=== PATIENT | female | born 1975 | race Asian ===

== ENCOUNTER 2019-10-03 07:19 | Outpatient (RCR) | payer OTHER, SELFPAY | END 2019-10-31 12:32 | disposition home or self-care (01) | LOC: ANHWOC 07:19 | PROVIDERS: PCP Family Medicine; Visit Provider Surgery | DX: Z48.00 Encounter for change or removal of nonsurgical wound dressing (principal) | CPT/HCPCS: 99212; 99214; G0463 ==

== ENCOUNTER 2019-11-27 13:57 | Outpatient (CLI) | payer OTHER, SELFPAY ==
[2019-11-27 15:23] LABS: Blood Urea Nitrogen 11 mg/dL (7-17); Calcium 9.6 mg/dL (8.4-10.2); Carbon Dioxide 29 mmol/L (22-30); Chloride 99 mmol/L (98-107); Estimated Glomerular Filt Rate > 60; Glucose 92 mg/dL (65-105); Magnesium 1.7 mg/dL (1.6-2.3); Potassium 4.2 mmol/L (3.4-5.0); Sodium 141 mmol/L (137-145)
== END 2019-11-27 13:58 | disposition home or self-care (01) ==
PROVIDERS: PCP Family Medicine; Visit Provider Internal Medicine Cardiovascular Disease
DX: E83.42 Hypomagnesemia (principal)
CPT/HCPCS: 36415; 80048; 83735

== ENCOUNTER 2019-12-04 14:37 | Outpatient (CLI) | payer OTHER, SELFPAY ==
[2019-12-04 15:10] LABS: Magnesium 1.6 mg/dL (1.6-2.3)
== END 2019-12-04 14:38 | disposition home or self-care (01) ==
PROVIDERS: PCP Family Medicine; Visit Provider Internal Medicine Cardiovascular Disease
DX: E83.42 Hypomagnesemia (principal)
CPT/HCPCS: 36415; 83735

== ENCOUNTER 2020-04-22 17:16 | Outpatient (CLI) | payer OTHER, SELFPAY ==
[2020-04-22 17:54] LABS: Magnesium 1.6 mg/dL (1.6-2.3)
== END 2020-04-22 17:17 | disposition home or self-care (01) ==
PROVIDERS: PCP Family Medicine; Visit Provider Internal Medicine Cardiovascular Disease
DX: I42.9 Cardiomyopathy, unspecified (principal)
CPT/HCPCS: 36415; 83735

== ENCOUNTER 2020-07-01 12:58 | Outpatient (CLI) | payer OTHER, SELFPAY ==
[2020-07-01 14:24] LABS: Free T4 Free Thyroxine 1.08 ng/mL (0.78-2.19)
[2020-07-05 07:33] LABS: FSH 44.7 mIU/mL (***)
== END 2020-07-01 12:59 | disposition home or self-care (01) ==
LOC: ANHLAB 13:00
PROVIDERS: PCP Family Medicine; Visit Provider Obstetrics & Gynecology
DX: N95.1 Menopausal and female climacteric states (principal)
CPT/HCPCS: 36415; 83001; 84439; 84443

== ENCOUNTER 2020-07-27 10:55 | Outpatient (CLI) | payer OTHER, SELFPAY ==
--- NOTE | ~2020-07-27 | MM_ITS ---
EXAMINATION: MM screening [facility] BI w taurus HISTORY: Screening mammogram TECHNIQUE: Craniocaudal and mediolateral oblique 3-D tomosynthesis images were obtained and synthetic 2-D images were generated. CAD analysis was submitted and interpreted. COMPARISON: 06/22/2017, 05/25/2016 BREAST PARENCHYMAL COMPOSITION: There are scattered areas of fibroglandular density. FINDINGS: There is no evidence of suspicious mass, calcification, or architectural distortion to sugg est malignancy in either breast. There has been no suspicious interval change. IMPRESSION: 1. No mammographic evidence of malignancy. 2. Recommend routine screening mammography in one year. BI-RADS Category 1: Negative Reviewed, dictated and finalized at location A.
== END 2020-07-27 10:56 | disposition home or self-care (01) ==
LOC: ANHIMG 10:59
PROVIDERS: PCP Family Medicine; Visit Provider Obstetrics & Gynecology
DX: Z12.31 Encounter for screening mammogram for malignant neoplasm of breast (principal)
CPT/HCPCS: 77063; 77067

== ENCOUNTER 2020-12-07 10:04 | Outpatient (CLI) | payer OTHER, SELFPAY | END 2020-12-07 10:05 | disposition home or self-care (01) | LOC: ANHCOVIDVC 10:04 | PROVIDERS: PCP Family Medicine; Visit Provider Family Medicine | DX: Z23 Encounter for immunization (principal) | CPT/HCPCS: 0001A; 91300 ==

== ENCOUNTER 2020-12-28 09:59 | Outpatient (CLI) | payer OTHER, SELFPAY | END 2020-12-28 10:00 | disposition home or self-care (01) | LOC: ANHCOVIDVC 09:59 | PROVIDERS: PCP Family Medicine; Visit Provider Family Medicine | DX: Z23 Encounter for immunization (principal) | CPT/HCPCS: 0002A; 91300 ==

== ENCOUNTER 2021-01-07 09:42 | Outpatient (CLI) | payer OTHER, SELFPAY ==
[2021-01-07 10:11] LABS: Hemoglobin 13.6 g/dL (12.0-15.0); Mean Corpuscular HGB Conc 33.2 g/dl (32-36); Mean Corpuscular Volume 81.3 fl (80-100); Mean Platelet Volume 10.6 fl (7.4-10.4); Platelet Count Result 272 k/mm3 (150-375); Red Blood Count 5.04 M/mm3 (4.2-5.4); Red Cell Distribution Width 13.4 % (11.5-14.5); White Blood Count 7.5 K/mm3 (4.5-10.0)
[2021-01-07 10:21] LABS: Add Urine Microscopic? YES; Appearance Urine Cloudy (Clear); Bacteria Urine Trace /hpf; Bilirubin Urine Negative (Negative); Blood Urine Negative (Negative); Color Urine Yellow (Yellow); Glucose Urine UA Negative (Negative); Ketones Urine Negative (Negative); Leukocyte Esterase Ur Negative LEU/UL (NEGATIVE); Mucus Urine Rare /lpf; Nitrate Urine Negative (Negative); Protein Urine Negative (Negative); RBC Urine 0-2 /hpf (0-2); Specific Grav Ur 1.014 (1.001-1.035); Squamous Epithelial Cell Urine Few /hpf (Few); Urobilinogen Urine Negative mg/dL (<2.0); WBC Urine 0-3 /hpf (0-3)
[2021-01-07 10:22] LABS: Potassium 4.5 mmol/L (3.4-5.0)
[2021-01-07 10:23] LABS: Alanine Aminotransferase 139 U/L (4-35); Albumin Level 4.3 g/dL (3.5-5.1); Alkaline Phosphatase 80 U/L (38-126); Anion Gap 5 mmol/L (8-16); Aspartate Amino Transferase 97 U/L (14-36); Bilirubin,Total 0.6 mg/dL (0.2-1.3); Blood Urea Nitrogen 10 mg/dL (7-17); Calcium 9.4 mg/dL (8.4-10.2); Carbon Dioxide 31 mmol/L (22-30); Chloride 104 mmol/L (98-107); Cholesterol 195 mg/dL (0-200); Estimated Glomerular Filt Rate > 60; Glucose 115 mg/dL (65-105); HDL Direct 49 mg/dL; Magnesium 1.6 mg/dL (1.6-2.3); Sodium 140 mmol/L (137-145); Triglycerides 240 mg/dL (<150)
[2021-01-07 10:33] LABS: LDL Cholesterol Direct 95 mg/dL
== END 2021-01-07 09:43 | disposition home or self-care (01) ==
PROVIDERS: PCP Family Medicine; Visit Provider Family Medicine
DX: E83.42 Hypomagnesemia (principal); E78.5 Hyperlipidemia, unspecified
CPT/HCPCS: 36415; 80053; 80061; 81001; 83735; 84443; 85027

== ENCOUNTER 2021-01-27 09:29 | Outpatient (CLI) | payer OTHER, SELFPAY ==
[2021-01-27 10:08] LABS: Alanine Aminotransferase 144 U/L (4-35); Albumin Level 4.2 g/dL (3.5-5.1); Alkaline Phosphatase 73 U/L (38-126); Aspartate Amino Transferase 103 U/L (14-36); Bilirubin,Total 0.5 mg/dL (0.2-1.3)
[2021-01-27 10:55] LABS: Hepatitis B Surface Antigen Negative (Negative)
[2021-01-27 11:00] LABS: HAV RESULT Negative (Negative); Hepatitis B Core IgM Result Negative (Negative)
[2021-01-27 11:12] LABS: Hepatitis C Virus Antibody Negative (Negative)
== END 2021-01-27 09:30 | disposition home or self-care (01) ==
PROVIDERS: PCP Family Medicine; Referring Provider Internal Medicine Cardiovascular Disease; Visit Provider Family Medicine
DX: R94.5 Abnormal results of liver function studies (principal)
CPT/HCPCS: 36415; 80074; 80076; 82728; 86038

== ENCOUNTER 2021-02-11 11:37 | Outpatient (CLI) | payer OTHER, SELFPAY ==
--- NOTE | ~2021-02-11 | US_ITS ---
EXAMINATION: US abdomen limited EXAM DATE: 02/11/2021 12:01 INDICATION: R74.8 - Abnormal levels of other serum enzymes . TECHNIQUE: Multiple grayscale and Doppler images of the abdomen right upper quadrant were obtained (jenny y a technologist who performed the scan) and subsequently reviewed. There is no prior study for quan corley. FINDINGS: The pancreatic head and body are normal in appearance. The pancreatic tail is not visualized. There is echogenic liver parenchyma, hepatic steatosis. There are no focal liver lesions identified. Th ere is no evidence of intrahepatic biliary duct dilation. Portal venous flow was seen in the hepatop edal, normal direction and has normal Doppler waveform. No right-sided hydronephrosis. Common bile duct measures 2 mm, which is normal. The gallbladder wall is normal in thickness, with ex pected amount of distention. No sonographic evidence of pericholecystic fluid. There is no cholelit hiases. IMPRESSION: 1. Hepatic steatosis. Reviewed, dictated and finalized at location A. IMPRESSION: 1. Hepatic steatosis.
== END 2021-02-11 11:38 | disposition home or self-care (01) ==
LOC: ANHIMG 11:40
PROVIDERS: PCP Family Medicine; Visit Provider Physician Assistant
DX: R74.8 Abnormal levels of other serum enzymes (principal); K76.0 Fatty (change of) liver, not elsewhere classified
CPT/HCPCS: 76705

== ENCOUNTER 2021-03-02 17:12 | Outpatient (CLI) | payer OTHER, SELFPAY ==
[2021-03-02 18:01] LABS: Alanine Aminotransferase 149 U/L (4-35); Albumin Level 4.2 g/dL (3.5-5.1); Alkaline Phosphatase 78 U/L (38-126); Aspartate Amino Transferase 119 U/L (14-36); Bilirubin,Total 0.5 mg/dL (0.2-1.3)
== END 2021-03-02 17:13 | disposition home or self-care (01) ==
LOC: ANHLAB 17:15
PROVIDERS: PCP Family Medicine; Visit Provider Internal Medicine Cardiovascular Disease
DX: I42.9 Cardiomyopathy, unspecified (principal)
CPT/HCPCS: 36415; 80076

== ENCOUNTER 2021-08-02 09:18 | Outpatient (CLI) | payer OTHER, SELFPAY ==
--- NOTE | ~2021-08-02 | MM_ITS ---
EXAMINATION: MM screening [facility] BI w taurus HISTORY: Screening TECHNIQUE: Craniocaudal and mediolateral oblique 3-D tomosynthesis images were obtained and synthetic 2-D images were generated. CAD analysis was submitted and interpreted. COMPARISON: 05/25/2016 BREAST PARENCHYMAL COMPOSITION: The breasts are heterogeneously dense, which may obscure small masses . FINDINGS: Stable benign-appearing right breast mass. There is no evidence of suspicious mass, calcifi cation, or architectural distortion to suggest malignancy in either breast. There has been no suspici ous interval change. IMPRESSION: 1. No mammographic evidence of malignancy. 2. Recommend routine screening mammography in one year. BI-RADS Category 2: Benign finding(s). Reviewed, dictated and finalized at location A.
== END 2021-08-02 09:19 | disposition home or self-care (01) ==
LOC: ANHIMG 09:21
PROVIDERS: PCP Family Medicine; Visit Provider Obstetrics & Gynecology
DX: Z12.31 Encounter for screening mammogram for malignant neoplasm of breast (principal)
CPT/HCPCS: 77063; 77067

== ENCOUNTER 2022-01-04 11:08 | Outpatient (CLI) | payer OTHER, SELFPAY ==
[2022-01-04 11:48] LABS: Add Urine Microscopic? YES; Appearance Urine Cloudy (Clear); Bacteria Urine Trace /hpf; Bilirubin Urine Negative (Negative); Blood Urine Negative (Negative); Color Urine Yellow (Yellow); Glucose Urine UA Negative (Negative); Ketones Urine Negative (Negative); Leukocyte Esterase Ur Negative LEU/UL (NEGATIVE); Mucus Urine Rare /lpf; Nitrate Urine Negative (Negative); Protein Urine Negative (Negative); Specific Grav Ur 1.021 (1.001-1.035); Squamous Epithelial Cell Urine Few /hpf (Few); Urobilinogen Urine Negative mg/dL (<2.0); WBC Urine 0-3 /hpf (0-3)
[2022-01-04 11:52] LABS: Hematocrit 40.4 % (37.0-47.0); Hemoglobin 13.4 g/dL (12.0-15.0); Mean Corpuscular HGB Conc 33.2 g/dl (32-36); Mean Corpuscular Hemoglobin 27.7 pg (26-34); Mean Corpuscular Volume 83.5 fl (80-100); Mean Platelet Volume 10.6 fl (7.4-10.4); Platelet Count Result 287 k/mm3 (150-375); Red Blood Count 4.84 M/mm3 (4.2-5.4); Red Cell Distribution Width 13.9 % (11.5-14.5); White Blood Count 8.1 K/mm3 (4.5-10.0)
[2022-01-04 12:08] LABS: Alanine Aminotransferase 29 U/L (4-35); Albumin Level 4.3 g/dL (3.5-5.1); Alkaline Phosphatase 73 U/L (38-126); Anion Gap 5 mmol/L (8-16); Aspartate Amino Transferase 37 U/L (14-36); Bilirubin,Total 0.6 mg/dL (0.2-1.3); Blood Urea Nitrogen 11 mg/dL (7-17); Carbon Dioxide 29 mmol/L (22-30); Chloride 105 mmol/L (98-107); Cholesterol 208 mg/dL (0-200); Estimated Glomerular Filt Rate > 60; Glucose 97 mg/dL (65-110); HDL Direct 43 mg/dL; Magnesium 1.6 mg/dL (1.6-2.3); Sodium 139 mmol/L (137-145); Triglycerides 302 mg/dL (<150)
[2022-01-04 12:20] LABS: LDL Cholesterol Direct 87 mg/dL
== END 2022-01-04 11:09 | disposition home or self-care (01) ==
PROVIDERS: PCP Family Medicine; Visit Provider Family Medicine
DX: Z00.00 Encounter for general adult medical examination without abnormal findings (principal); R74.8 Abnormal levels of other serum enzymes
CPT/HCPCS: 36415; 80053; 80061; 81001; 83735; 84443; 85027

== ENCOUNTER 2022-10-06 13:58 | Outpatient (CLI) | payer OTHER, SELFPAY ==
[2022-10-06 14:17] LABS: Basophils Absolute Auto 0.1 K/mm3 (0.0-0.1); Basophils Percent Auto 0.8 % (0.2-1.2); Eosinophils Absolute Auto 0.1 K/mm3 (0-0.3); Eosinophils Percent Auto 1.7 % (0-4.4); Hemoglobin 13.7 g/dL (12.0-15.0); Immature Granulocyte Absolute 0.02 K/mm3 (0.00-0.031); Immature Granulocyte Percent A 0.2 % (0-0.5); Lymphocytes Absolute Auto 2.95 K/mm3 (0.9-3.2); Mean Corpuscular HGB Conc 32.6 g/dl (32-36); Mean Corpuscular Hemoglobin 27.3 pg (26-34); Mean Corpuscular Volume 83.8 fl (80-100); Monocytes Absolute Auto 0.9 K/mm3 (0.1-0.6); Monocytes Percent Auto 10.4 % (2.6-8.5); Neutrophils Absolute Auto 4.4 K/mm3 (1.3-6.7); Neutrophils Percent Auto 51.9 % (45.5-73.1); Platelet Count Result 265 k/mm3 (150-375); Red Blood Count 5.01 M/mm3 (4.2-5.4); Red Cell Distribution Width 13.9 % (11.5-14.5); White Blood Count 8.4 K/mm3 (4.5-10.0)
[2022-10-06 14:29] LABS: Alanine Aminotransferase 46 U/L (6-35); Albumin Level 4.5 g/dL (3.5-5.1); Alkaline Phosphatase 64 U/L (38-126); Amylase 82 U/L (30-110); Anion Gap 6 mmol/L (8-16); Aspartate Amino Transferase 38 U/L (14-36); Bilirubin,Total 0.6 mg/dL (0.2-1.3); Blood Urea Nitrogen 7 mg/dL (7-17); Calcium 9.1 mg/dL (8.4-10.2); Carbon Dioxide 30 mmol/L (22-30); Chloride 103 mmol/L (98-107); Estimated Glomerular Filt Rate > 60; Glucose 119 mg/dL (65-110); Lipase 109 U/L (23-300); Sodium 139 mmol/L (137-145)
== END 2022-10-06 13:59 | disposition home or self-care (01) ==
LOC: ANHLAB 14:00
PROVIDERS: PCP Family Medicine; Visit Provider Physician Assistant
DX: R19.7 Diarrhea, unspecified (principal); E83.42 Hypomagnesemia; R10.13 Epigastric pain; Z90.49 Acquired absence of other specified parts of digestive tract
CPT/HCPCS: 36415; 80053; 82150; 83690; 83735; 85025

== ENCOUNTER → 2022-10-11 09:12 | Outpatient (CLI) | payer OTHER, SELFPAY ==
--- NOTE | ~2022-10-11 | US_ITS ---
EXAMINATION: US abdomen limited DATE: 10/11/2022 09:34 INDICATION: Epigastric abdominal pain TECHNIQUE: Multiple grayscale and Doppler ultrasound images of the abdomen were obtained. COMPARISON: 02/11/2021 FINDINGS: Bowel gas obscures visualization of the pancreas. The visualized portions of the pancreas a re unremarkable. The liver is normal with normal echogenicity and echotexture. No surface nodularity. Normal hepatopetal flow in the main portal vein. The gallbladder is normal with no abnormal wall thi ckening, pericholecystic fluid or stones. The normal common bile duct measures 4 mm. There was no son ographic Zelaya sign. IMPRESSION: 1. No sonographic correlate for the patient's symptoms. Reviewed, dictated and finalized at location B. COVER CUTTER
== END ==
PROVIDERS: PCP Physician Assistant; Visit Provider Physician Assistant
DX: R10.13 Epigastric pain (principal)
CPT/HCPCS: 76705

== ENCOUNTER 2022-10-17 16:04 | Outpatient (CLI) | payer OTHER, SELFPAY ==
--- NOTE | ~2022-10-17 | MM_ITS ---
EXAMINATION: MM screening [facility] BI w taurus HISTORY: Screening mammogram TECHNIQUE: Craniocaudal and mediolateral oblique 3-D tomosynthesis images were obtained and synthetic 2-D images were generated. CAD analysis was submitted and interpreted. COMPARISON: 08/02/2021, 07/27/2020, 06/22/2017 bilateral screening mammogram examinations BREAST PARENCHYMAL COMPOSITION: There are scattered areas of fibroglandular density. FINDINGS: Stable mild fibroglandular asymmetry and scattered benign calcifications. There is no evide nce of suspicious mass, calcification, or architectural distortion to suggest malignancy in either br east. There has been no suspicious interval change. IMPRESSION: 1. No mammographic evidence of malignancy. 2. Recommend routine screening mammography in one year. BI-RADS Category 2: Benign finding(s). Reviewed, dictated and finalized at location A. HONE OPERATOR
== END 2022-10-17 16:05 | disposition home or self-care (01) ==
PROVIDERS: PCP Family Medicine; Visit Provider Obstetrics & Gynecology
DX: Z12.31 Encounter for screening mammogram for malignant neoplasm of breast (principal)
CPT/HCPCS: 77063; 77067

== ENCOUNTER 2023-01-12 08:53 | Outpatient (CLI) | payer OTHER, SELFPAY ==
[2023-01-12 09:17] LABS: Hematocrit 38.8 % (37.0-47.0); Hemoglobin 12.9 g/dL (12.0-15.0); Mean Corpuscular HGB Conc 33.2 g/dl (32-36); Mean Corpuscular Hemoglobin 27.3 pg (26-34); Mean Platelet Volume 9.8 fl (7.4-10.4); Platelet Count Result 273 k/mm3 (150-375); Red Blood Count 4.73 M/mm3 (4.2-5.4); Red Cell Distribution Width 13.9 % (11.5-14.5); White Blood Count 7.1 K/mm3 (4.5-10.0)
[2023-01-12 09:38] LABS: Alanine Aminotransferase 37 U/L (6-35); Albumin Level 4.3 g/dL (3.5-5.1); Alkaline Phosphatase 71 U/L (38-126); Anion Gap 6 mmol/L (8-16); Aspartate Amino Transferase 32 U/L (14-36); Bilirubin,Total 0.6 mg/dL (0.2-1.3); Blood Urea Nitrogen 12 mg/dL (7-17); Calcium 9.1 mg/dL (8.4-10.2); Carbon Dioxide 31 mmol/L (22-30); Chloride 103 mmol/L (98-107); Cholesterol 222 mg/dL (0-200); Estimated Glomerular Filt Rate > 60; Glucose 108 mg/dL (65-110); HDL Direct 51 mg/dL; Magnesium 1.6 mg/dL (1.6-2.3); Potassium 3.9 mmol/L (3.4-5.0); Sodium 140 mmol/L (137-145); Triglycerides 202 mg/dL (<150)
[2023-01-12 09:48] LABS: LDL Cholesterol Direct 114 mg/dL
[2023-01-12 10:04] LABS: Appearance Urine Clear (Clear); Bacteria Urine None Seen /hpf; Bilirubin Urine Negative (Negative); Blood Urine Negative (Negative); Color Urine Yellow (Yellow); Glucose Urine UA Negative (Negative); Ketones Urine Negative (Negative); Leukocyte Esterase Ur Trace LEU/UL (NEGATIVE); Nitrate Urine Negative (Negative); Non Pathogenic Casts 0-2; Protein Urine Negative (Negative); RBC Urine 0-2 /hpf (0-2); Squamous Epithelial Cell Urine Occasional /hpf (Few); Urobilinogen Urine 0.2 mg/dL (<2.0); WBC Urine 0-5 /hpf (0-3)
[2023-01-12 10:11] LABS: Add Urine Microscopic? YES
== END 2023-01-12 08:54 | disposition home or self-care (01) ==
LOC: ANHLAB 08:56
PROVIDERS: PCP Family Medicine; Visit Provider Family Medicine
DX: Z00.00 Encounter for general adult medical examination without abnormal findings (principal); E83.42 Hypomagnesemia; E78.5 Hyperlipidemia, unspecified
CPT/HCPCS: 36415; 80053; 80061; 81001; 83735; 84443; 85027

== ENCOUNTER 2023-11-20 13:56 | Outpatient (CLI) | payer OTHER, SELFPAY ==
--- NOTE | ~2023-11-20 | MM_ITS ---
EXAMINATION: MM screening [facility] BI w taurus HISTORY: Screening TECHNIQUE: Craniocaudal and mediolateral oblique 3-D tomosynthesis images were obtained and synthetic 2-D images were generated. CAD analysis was submitted and interpreted. COMPARISON: No prior mammogram is available for comparison at this institution. BREAST PARENCHYMAL COMPOSITION: There are scattered areas of fibroglandular density. FINDINGS: There is a focal mass in the mid lateral aspect of the right breast and focal asymmetry max trally in the left breast on CC view. There are no suspicious calcifications. IMPRESSION: 1. Focal right breast mass and left breast asymmetry. 2. Additional mammographic views and possible breast ultrasound are recommended. BI-RADS Category 0: Incomplete: Needs additional imaging evaluation. Reviewed, dictated and finalized at location A. TS AND DRAWINGS CURATOR IMPRESSION: 1. Focal right breast mass and left breast asymmetry. 2. Additional mammographic views and possible breast ultrasound are recommended . BI-RADS Category 0: Incomplete: Needs additional imaging evaluation.
== END 2023-11-20 13:57 | disposition home or self-care (01) ==
PROVIDERS: PCP Family Medicine; Visit Provider Obstetrics & Gynecology
DX: Z12.31 Encounter for screening mammogram for malignant neoplasm of breast (principal); R92.8 Other abnormal and inconclusive findings on diagnostic imaging of breast
CPT/HCPCS: 77063; 77067

== ENCOUNTER 2023-12-04 12:32 | Outpatient (CLI) | payer OTHER, SELFPAY ==
--- NOTE | ~2023-12-04 | MM_ITS ---
EXAMINATION: MM diagnostic [facility] LT w taurus HISTORY: Focal asymmetry in central left breast on screening craniocaudal view of November 20, 2023 TECHNIQUE: Additional 3-D tomosynthesis images of left breast were performed and synthetic 2-D images were generated. CAD analysis was submitted and interpreted. COMPARISON: November 20, 2023, October 17, 2022, August 02ilateral screening mammogram examin ations FINDINGS: No suspicious mass, architectural distortion or significant new or developing density is no cyndy compared to 08/2000. IMPRESSION: 1. No mammographic evidence of malignancy 2. Routine annual mammographic screening is recommended. BI-RADS Category 1: Negative Reviewed, dictated and finalized at location A. EYOR OPERATOR
== END 2023-12-04 12:33 | disposition home or self-care (01) ==
PROVIDERS: PCP Family Medicine; Visit Provider Obstetrics & Gynecology
DX: R92.8 Other abnormal and inconclusive findings on diagnostic imaging of breast (principal)
CPT/HCPCS: 77061; 77065; G0279

== ENCOUNTER 2024-01-16 11:21 | Outpatient (CLI) | payer OTHER, SELFPAY ==
[2024-01-16 11:59] LABS: Appearance Urine Clear (Clear); Bacteria Urine None Seen /hpf; Bilirubin Urine Negative (Negative); Blood Urine Negative (Negative); Color Urine Yellow (Yellow); Glucose Urine UA Negative (Negative); Ketones Urine Negative (Negative); Leukocyte Esterase Ur Trace LEU/UL (Negative); Nitrate Urine Negative (Negative); Non Pathogenic Casts 0-2; Protein Urine Negative (Negative); RBC Urine 0-2 /hpf (0-2); Specific Grav Ur 1.016 (1.001-1.035); Squamous Epithelial Cell Urine Occasional /hpf (Few); Urobilinogen Urine 0.2 mg/dL (<2.0); WBC Urine 0-5 /hpf (0-3); pH Urine 7.5 (5.0-9.0)
[2024-01-16 12:04] LABS: Hematocrit 40.4 % (37.0-47.0); Hemoglobin 13.6 g/dL (12.0-15.0); Mean Corpuscular HGB Conc 33.7 g/dl (32-36); Mean Corpuscular Hemoglobin 28.5 pg (26-34); Mean Corpuscular Volume 84.7 fl (80-100); Mean Platelet Volume 10.7 fl (7.4-10.4); Platelet Count Result 226 k/mm3 (150-375); Red Blood Count 4.77 M/mm3 (4.2-5.4); Red Cell Distribution Width 13.3 % (11.5-14.5); White Blood Count 6.7 K/mm3 (4.5-10.0)
[2024-01-16 12:05] LABS: Add Urine Microscopic? YES
[2024-01-16 12:15] LABS: Alanine Aminotransferase 18 U/L (6-35); Albumin Level 4.3 g/dL (3.5-5.1); Alkaline Phosphatase 57 U/L (38-126); Anion Gap 4 mmol/L (4-12); Aspartate Amino Transferase 26 U/L (14-36); Bilirubin,Total 0.9 mg/dL (0.2-1.3); Blood Urea Nitrogen 9 mg/dL (7-17); Calcium 9.2 mg/dL (8.4-10.2); Carbon Dioxide 31 mmol/L (22-30); Chloride 105 mmol/L (98-107); Cholesterol 224 mg/dL (0-200); Estimated Glomerular Filt Rate > 60; Glucose 92 mg/dL (65-110); HDL Direct 54 mg/dL; Potassium 3.7 mmol/L (3.4-5.0); Sodium 140 mmol/L (137-145); Triglycerides 218 mg/dL (<150)
[2024-01-16 12:26] LABS: LDL Cholesterol Direct 116 mg/dL
== END 2024-01-16 11:22 | disposition home or self-care (01) ==
PROVIDERS: PCP Family Medicine; Visit Provider Family Medicine
DX: Z00.00 Encounter for general adult medical examination without abnormal findings (principal)
CPT/HCPCS: 36415; 80053; 80061; 81001; 84443; 85027

== ENCOUNTER 2024-11-10 13:06 | Outpatient (CLI) | payer OTHER, SELFPAY ==
--- NOTE | ~2024-11-10 | MM_ITS ---
EXAMINATION: MM diagnostic mahnaz BI w taurus HISTORY: Dense breasts. TECHNIQUE: Additional 3-D tomosynthesis images of the breasts were performed and synthetic 2-D images were generated. CAD analysis was submitted and interpreted. COMPARISON: Comparison to multiple prior studies sequentially, with oldest reviewed study dated 06/22. BREAST PARENCHYMAL COMPOSITION: Not dense: There are scattered areas of fibroglandular density. FINDINGS: The breasts are stable. No new masses, calcifications or architectural distortion are ident ified in either breast to suggest malignancy. IMPRESSION: 1. Stable bilateral mammogram without evidence for malignancy. 2. Routine yearly screening mammogram and regular clinical breast examination are recommended. BI-RADS Category 1: Negative Reviewed, dictated and finalized at location B. WEBSPHERE DEVELOPER IMPRESSION: 1. Stable bilateral mammogram without evidence for malignancy. 2. Routine yearly screening mammogram and regular clinical breast examination a re recommended. BI-RADS Category 1: Negative
--- OUTSIDE RECORDS SUMMARY | 2024-11-10 13:18 | XMS_ITS | Clinical Summary ---
Author Organization [facility] Address [address] [place] [address] Care Team Providers Care Floater Operator Name Role Phone Lawrence Don MD Unavailable [phone] Source Comments [facility],non-owned Affiliates and Associated Physician Practices is amultiple site organization consisting of ambulatory clinics and hospital sitesin [place], [place], [place] and [place]. This disclosure is being madepursuant to the Care Everywhere program and may not contain all information available regarding this patient. Last updated 18.[facility] Active Problems Problem Noted Date Diagnosed Date Placenta previa without hemorrhage, antepartum 0 02/03/2014 Supervision of other high-risk 014 Overview (08/08/2015): Social History Tobacco Use Types Packs/Day Years Used Date Smoking Tobacco: Never Assessed Sex and Gender Information Value Date Recorded Sex Assigned at Not on file Gender Identity Not on file Sexual Orientation Not on file Plan of Treatment Health Maintenance Due Date Last Done Comments COLOGUARD (AGES 45-75) - COL ON CA SCREENING 1976 COLON MONITORING 1976 COLONOSCOPY - COLON CA SCREENING 1976 CT COLONOGRAPHY - COLON CA SCREENING 1975 Colorectal Cancer Screening 1975 FIT - COLON CA SCREENING 1976 FLEX SIG - COLON CA SCREENING 1976 LIPID TESTING 1975 MAMMOGRAM 1975 PAP SMEAR 1976 HIV SCREENING 1991 HEPATITIS C SCREENING 07/10/1994 DTAP/TDAP/TD VACCINES (1 - Tdap) 1995 HEPATITIS B VACCINE (1 of 3 - 19+ 3-dose series) 1995 COVID-19 VACCINE (1 - 2023-2 5 season) 2024 INFLUENZA VACCINE (#1) 2024 DEPRESSION SCREENING 10/01/2024 ZOSTER VACCINE (1 of 2) 2026 HIB VACCINE Aged Out No longer eligi ble based on patient's age to complete this topic HPV VACCINE Aged Out No longer eligi ble based on patient's age to complete this topic MENINGOCOCCAL (Group B) VACCINE Aged Out No longer eligible based on patient's age to complete this topic MENINGOCOCCAL VACCINE Aged Out No mariel moises eligible based on patient's age to complete this topic PNEUMOCOCCAL VACCINE Aged Out No long er eligible based on patient's age to complete this topic Care Teams Floater Operator Relationship Specialty Start Date End Date Lawrence Don MD Internal Medicine 02/06/14
--- OUTSIDE RECORDS SUMMARY | 2024-11-10 13:18 | XMS_ITS | Referral Summary ---
Author Organization [facility] Address [address] [place] [address] Care Team Providers Care Table Worker Name Role Phone Gustavo Mendosa MD Primary Care Provider Encounters Date Type Department Care Team Description 10/23/2024 10:15 AM QUARRY PLANT CRUSHER OPERATOR Office Visit [facility] Cardiology at [address] [place] [address] John Austin MD H/O cardiomyopathy (Primary Dx); Cardiomyopathy, unspecified type (HCC) from Last 3 Months Allergies No known active allergies Medications multivitamin capsule Take 1 capsule by mouth daily Active metoprolol XL (TOPROL-XL) 50 mg extended release tabletIndication s:Tachycardia, unspecified Take 1 tablet by mouth once daily 30 tablet 11 04/16/2024 Active Active Problems Problem Noted Date Diagnosed Date Hypertriglyceridemia 01/30/2022 Dizziness 01/30/2022 Abnormal LFTs 07/04/2021 H/O cardiomyopathy 06/22/2020 Preoperative cardiovascular examination 09/03/20 19 Cardiomyopathy 07/03/2019 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 Supervision of high-risk , unspecified trimester 11/21/2018 Antepartum multigravida of advanced maternal age 0211/21/2018 Previous section complicating 11/21/2018 Overview (12/23/2018): For repeat c/s with Beer at 39 weeks Diabetes mellitus complicating , antepa rtum 11/21/2018 Overview (02/11/2019): Current therapy as of 02/11/19 NPH 30 QHS Metformin 500mg QAM /1700mg QHS Resolved Problems Problem Noted Date Diagnosed Date Resolved Date Pyelectasis of fetus on ultrasound 11/21/2018 01/20/2019 Overview (12/23/2018): 12/23: R renal pelvis 5.5 mm For assessment at 32-33 weeks. Recurrent loss 01/01/2018 Anovulation 07/03/2017 11/21/2018 History of obstetric problem 11/30/2016 11/21/2018 Diminished ovarian reserve d ue to advanced maternal age 0805/11/2016 11/21/2018 Placenta previa without hemo rrhage, antepartum 02/03/2014 11/21/2018 Social History Tobacco Use Types Packs/Day Years Used Date Smoking Tobacco: Never Smokeless Tobacco: Never Tobacco Cessation:Counseling Given: Not Answered Alcohol Use Standard Drinks/Week Comments No 0 (1 standard drink = 0.6 oz pur e alcohol) AUDIT-C Answer Date Recorded Q1: How often do you have a drink containing alc ohol? Never 10/19/2022 Average Number of Drinks Not on file 023 Frequency of Binge Drinking Not on file 10/01 Personal Safety Answer Date Recorded Getting School Help Needed Denies 09/25 Comments No Sex and Gender Information Value Date Recorded Sex Assigned at Not on file Legal Sex Female 4:05 AM QUARRY PLANT CRUSHER OPERATOR Gender Identity Female 03/09/2020 7:23 PM CDT Sexual Orientation Not on file Last Filed Vital Signs Vital Sign Reading Time Taken Comments Blood Pressure 128/78 10/23/2024 10:02 AM QUARRY PLANT CRUSHER OPERATOR Pulse 87 10/23/2024 10:02 AM QUARRY PLANT CRUSHER OPERATOR Temperature 36 C (96.8 F) 10/19/2022 2:10 PM QUARRY PLANT CRUSHER OPERATOR Respiratory Rate 15 10/19/2022 2:30 PM QUARRY PLANT CRUSHER OPERATOR Oxygen Saturation 97% 10/23/2024 10:02 AM QUARRY PLANT CRUSHER OPERATOR Inhaled Oxygen Concentration - - Weight 79.8 kg (176 lb) 10/23/2024 10:02 AM QUARRY PLANT CRUSHER OPERATOR Height 167.6 cm (5' 6 ) 10/23/2024 10:02 AM QUARRY PLANT CRUSHER OPERATOR Body Mass Index 28.41 10/23/2024 10:02 AM QUARRY PLANT CRUSHER OPERATOR Plan of Treatment Not on file Procedures Procedure Name Priority Date/Time Associated Diagnosis Comments LIPID PANEL Routine 01/16/2024 11:37 AM CDT COLONOSCOPY 10/19/2022 1:03 PM QUARRY PLANT CRUSHER OPERATOR HEMOGLOBIN A1C Routine 08/13/2018 SERUM HEPATITIS C AB Routine 06/16/2016 12:03 PM CDT from Last 3 Months or Most Recently Relevant to Health Maintenance Results * (ABNORMAL) Lipid panel (01/16/2024 11:37 AM CDT) SCRIBED Cholesterol, Total 224(A) 0 - 200 EXTERNAL LAB SCRIBED HDL 54 40 - 100 EXTERNAL LAB SCRIBED LDL 116(A) 0 - 100 EXTERNAL LAB SCRIBED Triglycerides 218(A) 0 - 150 EXTERNAL LAB Blood 01/16/2024 11:3 7 AM CDT us Historical Provider LAB BLOOD ORDERABLES Felicitas joseph Result EXTERNAL LAB * COLONOSCOPY (10/19/2022 1:03 PM QUARRY PLANT CRUSHER OPERATOR) Anatomical Region Laterality Modality Other Narrative Procedure Note Early, Lay Ventura MD - 10/19/2022 1:03 PM [facility] Patient Name: Elisha Guzmán Procedure Date: 10/19/2022 1:03 PM Date of : 1975 Admit Type: Outpatient Age: 47 Gender: Female Attending MD: Lay Salazar M.D. Room: [facility] ENDOSCOPY ROOM 9 Note Status: Finalized Procedure: Colonoscopy Indications: Screening for colorectal malignant neoplasm, Incidental - Positive Cologuard test Referring MD: Robert Hays M.D., Gustavo Mendosa M.D. Providers: Lay Salazar M.D. Medicines: Monitored Anesthesia Care Complications: No immediate complications. Estimated Blood Loss: Estimated blood loss: none. Procedure: Pre-Anesthesia Assessment: - Immediately prior to administration ofmedications, the patient was re-assessed for adequacy to receive sedatives. - The risks and benefits of the procedure and the sedation options and risks were discussed with the patient. All questions were answered and informed consent was obtained. The benefits, risks and alternatives of theprocedure and sedation were discussed and informed consentwas obtained. All questions were answered. Please referto the signed informed consent document in the medical record. The scope was passed under direct vision.The [id number] endoscope was introduced through the anus and advanced to the cecum, identified by appendiceal orifice and ileocecal valve. The colonoscopy was performed without difficulty. The patient tolerated the procedure well. The qualityof the bowel preparation was evaluated using the BBPS (Aspen Bowel Preparation Scale) with scores of:Right Colon = 3, Transverse Colon = 3 and Left Colon = 3 (entire mucosa seen well with no residual staining, small fragments of stool or opaque liquid). Thetotal BBPS score equals 9. The bowel preparation used was polyethylene glycol (PEG) via split doseinstruction. The quality of the bowel preparation wasexcellent. Findings: A 4 mm polyp was found in the sigmoid colon. The polyp was sessile.The polyp was removed with a cold snare. Resection and retrieval were complete. Small non-bleeding internal hemorrhoids were found on retroflexion. The exam was otherwise without abnormality. Impression: - One 4 mm polyp in the sigmoid colon, removed witha cold snare. Resected and retrieved. - Small non-bleeding internal hemorrhoids werefound on retroflexion. - The examination was otherwise normal. Recommendation: - Repeat colonoscopy in 7-10 years for surveillance based on pathology results. Attending Participation: I personally performed the entire procedure. Electronically signed by Lay Salazar MD Lay Salazar M.D. 10/19/2022 2:34:21 PM . Number of Addenda: 0 Note Initiated On: 10/19/2022 1:03 PM Recognized by the [employer] for promoting quality in endoscopy Lay Salazar MD ENDOSCOPY PROCEDURES Final Res ult * Hemoglobin A1c (08/13/2018) SCRIBED Hemoglobin A1c 5.7 (high) Blood specimen (specimen) Glen Sofia MD LAB BLOOD ORDERABLES Final Re sult * Serum Hepatitis C ab (06/16/2016 12:03 PM CDT) HCV ab Negative NEG CDR HISTOR ICAL RESULTS Serum 06/16/2016 12:0 3 PM CDT Narrative CDR HISTORICAL RESULTS - 06/17/2016 4:57 AM CDT Interpretive Data Positive results should be confirmed by a molecular method. If positive, a second separately collected sample should be submitted for Hepatitis C Virus (HCV) RNA Detection and Quantitation by Real-Time Reverse Painter Drum-PCR (RT-PCR). Current interpretive data was last revised on 2016. Kala Silver MD LAB BLOOD ORDERABLES Final Re sult CDR HISTORICAL RESULTS from Last 3 Months or Most Recently Relevant to Health Maintenance Insurance [facility]/PPO Address: [facility] [id number] [place] [address] [facility] H[facility]/PPO Address: [address] [address] [place] [address] [facility] O [facility] HMO/PPO Address: [facility] [address] [place] [address] [facility] O [facility] H[facility]/PPO Address: [facility] [id number] [place] [address] [facility] HMO/PPO Address: [facility] [address] [place] [address] Advance Directives For more information, please contact: [phone] * Full Code (Latest Code Status on File) Date Activated Date Inactivated Comments 10/19/2022 1:30 PM 10/19/2022 6:57 PM Care Teams Table Worker Relationship Specialty Start Date End Date Gustavo Mendosa MD [address] [facility] [address] [place] [address] PCP - General Family Medicine 05/09/19
--- OUTSIDE RECORDS SUMMARY | 2024-11-10 13:18 | XMS_ITS | Referral Summary ---
Author Organization [facility] Address [address] [place] [address] Care Team Providers Care Lithograph Press Operator Tinware Name Role Phone Lawrence Don MD Unavailable [phone] Source Comments [facility],non-owned Affiliates and Associated Physician Practices is amultiple site organization consisting of ambulatory clinics and hospital sitesin [place], [place], [place] and [place]. This disclosure is being madepursuant to the Care Everywhere program and may not contain all information available regarding this patient. Last updated 18.[facility] Active Problems Problem Noted Date Diagnosed Date Placenta previa without hemorrhage, antepartum 0 02/03/2014 Supervision of other high-risk 014 Overview (08/08/2015): Social History Tobacco Use Types Packs/Day Years Used Date Smoking Tobacco: Never Assessed Sex and Gender Information Value Date Recorded Sex Assigned at Not on file Gender Identity Not on file Sexual Orientation Not on file Plan of Treatment Not on file Care Teams Lithograph Press Operator Tinware Relationship Specialty Start Date End Date Lawrence Don MD Internal Medicine 02/06/14
--- OUTSIDE RECORDS SUMMARY | 2024-11-10 13:18 | XMS_ITS | Clinical Summary ---
Author Organization [facility] Address [address] [place] [address] Care Team Providers Care Journeyman Plumber Name Role Phone Gustavo Mendosa MD Primary Care Provider Allergies No known active allergies Medications multivitamin [...] previa without hemo rrhage, antepartum 02/03/2014 11/21/2018 Encounters Date Type Department Care Team Description 10/23/2024 10:15 AM LEPIDOPTERIST Office Visit [facility] Medical Group Cardiology at [address] [place] [address] John Austin MD H/O cardiomyopathy (Primary Dx); Cardiomyopathy, unspecified type (HCC) from Last 3 Months Surgical History Surgery Date Site/Laterality Comments SECTION 03/31/2014 - 04/30/2014 OTHER SURGICAL HISTORY 05/12/2013 Laparoscopic lysis of adhesions, HSC polypectomy, left tubal occlusion EXPLORATORY LAPAROTOMY 10/01/2004 e-lap RSO in 2004 EXPLORATORY LAPAROTOMY 10/01/2006 ex lap and left ovarian cystectomy in 2006 SMALL BOWEL RESECTION TUBAL LIGATION Medical History Medical History Date Comments Endometriosis 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 History of gestational diabetes Recurrent loss Diminished ovarian reserve due to advanced mater nal age Cardiomyopathy (HCC) Family History Medical History Relation Name Comments Car Accident Father Diabetes Other Relation Name Status Comments Father Mother Alive Other Social History Tobacco Use Types Packs/Day Years [...] on file Legal Sex Female 4:05 AM LEPIDOPTERIST Gender Identity Female 03/09/2020 7:23 PM CDT Sexual Orientation Not on file Obstetrics History Para Term AB IAB SAB Ectopic Multiple Livin g Live Births 4 1 1 0 2 2 1 1 Date Outcome GA Total Labor Labor/2nd/3rd Weight Sex Type Anes PTL Ana A1 A5 Name Clin 014 Term 37w 0d 2.722 kg (6 lb) CS-LT ranv Living Complications:Placenta Previ a 016 SAB 017 SAB Comments Conceived by donor egg Last Filed Vital Signs Vital Sign Reading Time Taken Comments Blood Pressure 128/78 10/23/2024 10:02 AM LEPIDOPTERIST Pulse 87 10/23/2024 10:02 AM LEPIDOPTERIST Temperature 36 C (96.8 F) 10/19/2022 2:10 PM LEPIDOPTERIST Respiratory Rate 15 10/19/2022 2:30 PM LEPIDOPTERIST Oxygen Saturation 97% 10/23/2024 10:02 AM LEPIDOPTERIST Inhaled Oxygen Concentration - - Weight 79.8 kg (176 lb) 10/23/2024 10:02 AM LEPIDOPTERIST Height 167.6 cm (5' 6 ) 10/23/2024 10:02 AM LEPIDOPTERIST Body Mass Index 28.41 10/23/2024 10:02 AM LEPIDOPTERIST Plan of Treatment Health Maintenance Due Date Last Done Comments Albumin Creatinine Ratio, Urine 1976 Breast Cancer Screening-Mammogram 1976 Cervical Cancer Screening 1976 Depression Screening 1976 eGFR 1976 Dilated Eye Exam 1976 Foot Exam 1976 Pneumococcal vaccine <65 (1 of 2 - PCV) 1982 Hepatitis B Screening 1994 Regular Well Visit/Exam 18-64 1994 Hemoglobin A1C 02/10/2019 08/13/2018 Influenza Vaccine (#1) 2024 Lipid Panel 01/15/2025 01/16/2024, 01/29, 01/30/2022, Additional history exists DTaP/Tdap/Td Vaccine (2 - Td or Tdap) 01/14/2029 01/14/2019 Colon Cancer Screening-Colonoscopy 10/19/20322022 Hepatitis C Screening Completed 06/16/2016, 013 Procedures Procedure Name Priority Date/Time Associated Diagnosis Comments LIPID PANEL Routine 01/16/2024 11:37 AM CDT COLONOSCOPY 10/19/2022 1:03 PM LEPIDOPTERIST HEMOGLOBIN A1C Routine 08/13/2018 SERUM HEPATITIS C [...] us Historical Provider LAB BLOOD ORDERABLES Felicitas l Result EXTERNAL LAB * COLONOSCOPY (10/19/2022 1:03 PM LEPIDOPTERIST) Anatomical Region Laterality Modality Other Narrative Procedure Note Early, Lay Ventura MD - 10/19/2022 1:03 PM [facility] Patient Name: Elisha Guzmán Procedure Date: 10/19/2022 1:03 PM Date of : 1975 Admit Type: Outpatient Age: 47 Gender: Female Attending MD: Lay Salazar M.D. Room: [facility] 9 Note Status: Finalized Procedure: [...] The scope was passed under direct vision.The [id number] endoscope was introduced through the anus and advanced to the cecum, identified by appendiceal orifice and ileocecal valve. The colonoscopy was performed without difficulty. The patient tolerated the procedure well. The qualityof the bowel preparation was evaluated using the BBPS ([place] Bowel Preparation Scale) with scores of:Right Colon [...] On: 10/19/2022 1:03 PM Recognized by the [place] [employer] Gastrointestinal Endoscopy for promoting quality [...] RNA Detection and Quantitation by Real-Time Reverse Igniter Capper-PCR (RT-PCR). Current interpretive data was last revised on 2016. us Kala Silver MD LAB BLOOD ORDERABLES Final Re sult CDR HISTORICAL RESULTS from Last 3 Months or Most Recently Relevant to Health Maintenance Insurance [facility] Advance Directives For more information, please contact: [phone] * Full Code (Latest Code Status on File) Date Activated Date Inactivated Comments 10/19/2022 1:30 PM 10/19/2022 6:57 PM Care Teams Journeyman Plumber Relationship Specialty Start Date End Date Gustavo Mendosa MD [address] [facility] [address] [place] [address] PCP - General Family Medicine 05/09/19
--- OUTSIDE RECORDS SUMMARY | 2024-11-10 13:19 | XMS_ITS | Patient Health Summary ---
Author Organization [facility] Address [address] [place] [address] Care Team Providers Care Department Assistant Name Role Phone Lawrence Don MD Unavailable [phone] Note from [facility],non-owned Affiliates and Associated Physician Practices is amultiple site organization consisting of ambulatory clinics and hospital sitesin [place], [place], [place] and [place]. This disclosure is being madepursuant to the Care Everywhere program and may not contain all information available regarding this patient. Last updated 18.[facility] Active Problems Problem Noted Date Diagnosed Date Placenta previa without hemorrhage, antepartum 0 02/03/2014 Supervision of other high-risk 014 Social History Tobacco Use Types Packs/Day Years Used Date Smoking Tobacco: Never Assessed Sex and Gender Information Value Date Recorded Sex Assigned at Not on file Gender Identity Not on file Sexual Orientation Not on file Procedures * SONOGRAM - COMPLETE(Performed 02/06/2014) Performed for Placenta Previa Without Hemorrhage, Antepartum (Hcc), Supervision of other high-risk (HCC) Results * SONOGRAM - COMPLETE (02/06/2014 4:11 PM CDT) Anatomical Region Laterality Modality Other 02/06/2014 4:11 PM CDT Narrative 02/06/2014 4:03 PM CDT [facility] PHONE: FAX: Pat. Name: ELISHA SANCHEZ. No: [id number] Study Date: 02/06/2014 4:11pm , Age: 11 1975, 38 Pregnancies: 1 LMP: 07/28/2013 GA by LMP: 27w4d GA by US: 25w4d GA Selected: 25w3d (From Known E) ARIE: 05/19/2014 Referring MD: JOHN DANIEL MD Hand Riveter: Dixie Trejo RDMS Hist/Ind: Advanced Maternal Age Complete Previa MEASUREMENTS & AGE GROWTH EVALUATION Measurement GA Range Srce %for GA Ratios ----- ---- ------- BPD 6.3 cm 25w4d (15c3z-19o8b) Hadl BPD 52% FL/BPD 0.73 (0.71 - 0.87) HC 22.2 cm 24w2d (86q9d-98b7p) Hadl HC 25% FL/AC 0.22 (0.20 - 0.24) AC 20.8 cm 25w3d (08f8v-94i2m) Hadl AC 49% HC/AC 1.07 (1.01 - 1.20) FL 4.6 cm 25w3d (15b7u-34v4p) Hadl FL 49% CI 0.82 (0.70 - 0.86) HL 4.7 cm 27w4d (49l9g-31s8u) Davey MCKINNON 86% GA for sonogram 25w4d (55l4y-67s7n) Weight Estimate: based on (HL,BPD,HC,AC,FL) Avg Weight: 791 gm (675-906) Hadlock : 1lbs, 11oz Normal: 791 gm (524-1240) Julianna Wt% 50% for 25w3d Heart Rate: 129 bpm CLINICAL SUMMARY Study Number: 1 A viramontes fetus is identified in cephalic presentation. The amniotic fluid volume is within normal limits. IMPRESSION: Viramontes gestation, 25w3d Biometry is consistent with the IVF-based ARIE of 05/19/14 No structural abnormalities were detected on detailed anatomic survey There is a complete posterior previa There is a marginal placental cord insertion NOTE: The patient was advised that ultrasound does not allow detection of all structural or chromosomal abnormalities. RECOMMEND: Repeat growth assessment in 4 weeks. Thank you for allowing us the opportunity to care for your patient. Jayna Gracia MD <Electronic Signature> 02/06/2014 04:02pm Jayna Gracia MD [facility] ORDERABLES Care Teams Department Assistant Relationship Specialty Start Date End Date Lawrence Don MD Internal Medicine 02/06/14
== END 2024-11-10 13:07 | disposition home or self-care (01) ==
LOC: ANHIMG 13:06
PROVIDERS: PCP Family Medicine; Visit Provider Obstetrics & Gynecology
DX: R92.30 Dense breasts, unspecified (principal); Z98.82 Breast implant status
CPT/HCPCS: 77062; 77066; G0279

== ENCOUNTER 2025-01-20 14:04 | Outpatient (CLI) | payer OTHER, SELFPAY ==
[2025-01-20 14:45] LABS: Hematocrit 41.8 % (37.0-47.0); Hemoglobin 13.3 g/dL (12.0-15.0); Mean Corpuscular HGB Conc 31.8 g/dl (32-36); Mean Corpuscular Hemoglobin 26.3 pg (26-34); Mean Corpuscular Volume 82.8 fl (80-100); Mean Platelet Volume 10.5 fl (7.4-10.4); Platelet Count Result 247 k/mm3 (150-375); Red Blood Count 5.05 M/mm3 (4.2-5.4); Red Cell Distribution Width 13.5 % (11.5-14.5); White Blood Count 7.3 K/mm3 (4.5-10.0)
[2025-01-20 14:48] LABS: Add Urine Microscopic? YES; Appearance Urine Clear (Clear); Bacteria Urine None Seen /hpf; Bilirubin Urine Negative (Negative); Blood Urine Negative (Negative); Color Urine Yellow (Yellow); Glucose Urine UA Negative (Negative); Ketones Urine Negative (Negative); Leukocyte Esterase Ur Negative LEU/UL (Negative); Nitrate Urine Negative (Negative); Non Pathogenic Casts 0-2; Protein Urine Trace mg/dL (Negative); RBC Urine 0-2 /hpf (0-2); Specific Grav Ur 1.019 (1.001-1.035); Squamous Epithelial Cell Urine None Seen /hpf (Few); Urobilinogen Urine 0.2 mg/dL (<2.0); WBC Urine 0-5 /hpf (0-3)
[2025-01-20 14:54] LABS: Alanine Aminotransferase 29 U/L (6-35); Albumin Level 4.4 g/dL (3.5-5.1); Alkaline Phosphatase 79 U/L (38-126); Anion Gap 8 mmol/L (4-12); Aspartate Amino Transferase 30 U/L (14-36); Bilirubin,Total 0.6 mg/dL (0.2-1.3); Blood Urea Nitrogen 10 mg/dL (7-17); Calcium 9.2 mg/dL (8.4-10.2); Carbon Dioxide 29 mmol/L (22-30); Chloride 103 mmol/L (98-107); Cholesterol 238 mg/dL (0-200); Estimated Glomerular Filt Rate > 60; Glucose 97 mg/dL (65-110); HDL Direct 56 mg/dL; Sodium 140 mmol/L (137-145); Triglycerides 305 mg/dL (<150)
[2025-01-20 15:05] LABS: LDL Cholesterol Direct 94 mg/dL
--- OUTSIDE RECORDS SUMMARY | 2025-01-20 16:09 | XMS_ITS | Clinical Summary ---
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 Hypomagnesemia 07/03/2019 [...] Department Care Team Description 10/23/2024 10:15 AM BATTERY TESTER FIELD Office Visit [facility] Medical Group Cardiology at [address] [place] [address] John Austin MD H/O cardiomyopathy [...] on file Legal Sex Female 4:05 AM BATTERY TESTER FIELD Gender Identity Female 03/09/2020 7:23 PM CDT [...] Comments Blood Pressure 128/78 10/23/2024 10:02 AM BATTERY TESTER FIELD Pulse 87 10/23/2024 10:02 AM BATTERY TESTER FIELD Temperature 36 C (96.8 F) 10/19/2022 2:10 PM BATTERY TESTER FIELD Respiratory Rate 15 10/19/2022 2:30 PM BATTERY TESTER FIELD Oxygen Saturation 97% 10/23/2024 10:02 AM BATTERY TESTER FIELD Inhaled Oxygen Concentration - - Weight 79.8 kg (176 lb) 10/23/2024 10:02 AM BATTERY TESTER FIELD Height 167.6 cm (5' 6 ) 10/23/2024 10:02 AM BATTERY TESTER FIELD Body Mass Index 28.41 10/23/2024 10:02 AM BATTERY TESTER FIELD Plan of Treatment Health Maintenance Due Date Last Done Comments Albumin Creatinine Ratio, Urine 1976 Breast Cancer Screening-Mammogram 1976 Cervical Cancer Screening 1976 Depression Screening 1976 eGFR 1976 Dilated Eye Exam 1976 Foot Exam 1976 Hepatitis B Screening 1994 Regular Well Visit/Exam 18-64 1994 Pneumococcal vaccine <65 (1 of 2 - PCV) 1995 Hemoglobin A1C 02/10/2019 08/13/2018 Lipid Panel 01/15/2025 01/16/2024, 01/29, 01/30/2022, Additional history exists Influenza Vaccine (Season Ended) 2025 DTaP/Tdap/Td Vaccine (2 - Td or Tdap) 01/14/2029 01/14/2019 Colon Cancer Screening-Colonoscopy 10/19/20322022 Hepatitis C Screening Completed 06/16/2016, 013 Procedures Procedure Name Priority Date/Time Associated Diagnosis Comments LIPID PANEL Routine 01/16/2024 11:37 AM CDT COLONOSCOPY 10/19/2022 1:03 PM BATTERY TESTER FIELD HEMOGLOBIN A1C Routine 08/13/2018 SERUM HEPATITIS C [...] EXTERNAL LAB * COLONOSCOPY (10/19/2022 1:03 PM BATTERY TESTER FIELD) Anatomical Region Laterality Modality Other Narrative Procedure Note Early, Lay Ventura MD - 10/19/2022 1:03 PM CST [facility] Patient Name: Elisha Guzmán Procedure Date: 10/19/2022 1:03 PM Date of : 1975 Admit Type: Outpatient Age: 47 Gender: Female Attending MD: Lay Salazar M.D. Room: [facility] END[facility] 9 Note Status: Finalized Procedure: Colonoscopy Indications: Screening for colorectal malignant neoplasm, Incidental - Positive Cologuard test Referring MD: Robert Hasy M.D., Gustavo Mendosa M.D. Providers: Lay Salazar [...] The scope was passed under direct vision.The [id number] endoscope was introduced through the anus and advanced to the cecum, identified by appendiceal orifice and ileocecal valve. The colonoscopy was performed without difficulty. The patient tolerated the procedure well. The qualityof the bowel preparation was evaluated using the BBPS ([place] Bowel Preparation Scale) with scores of:Right Colon [...] On: 10/19/2022 1:03 PM Recognized by the [place] [employer] Gastrointestinal Endoscopy for promoting quality [...] RNA Detection and Quantitation by Real-Time Reverse Hvac Project Manager-PCR (RT-PCR). Current interpretive data was last revised on 2016. us Kala Silver MD LAB BLOOD ORDERABLES Final Re sult CDR HISTORICAL RESULTS from Last 3 Months or Most Recently Relevant to Health Maintenance Insurance [facility] H[facility]/PPO Address: [facility] [id number] [place] [address] [facility] H[facility]/PPO Address: [address] [address] [place] [address] [facility] H[facility]/PPO Address: [id number] [place] [address] [facility] H[facility]/PPO Address: [id number] [place] [address] Advance Directives For more information, please contact: [phone] * Full Code (Latest Code Status on File) Date Activated Date Inactivated Comments 10/19/2022 1:30 PM 10/19/2022 6:57 PM Care Teams Stained Glass Artist Relationship Specialty Start Date End Date Gustavo eMndosa MD [address] [facility] [address] [place] [address] PCP - General Family Medicine 05/09/19
--- OUTSIDE RECORDS SUMMARY | 2025-01-20 16:09 | XMS_ITS | Clinical Summary ---
Author Organization [facility] Address [address] [place] [address] Care Team Providers Care Strings Teacher Name Role Phone Lawrence Don MD Unavailable [phone] Source Comments [facility],non-owned Affiliates and Associated Physician Practices is amultiple site organization consisting of ambulatory clinics and hospital sitesin [place], [place], [place] and [place]. This disclosure is being madepursuant to the Care Everywhere program and may not contain all information available regarding this patient. Last updated 18.[facility] Active Problems Problem Noted Date Diagnosed Date Placenta previa without hemorrhage, antepartum 0 02/03/2014 Supervision of other high-risk 014 Overview (08/08/2015): Social History Tobacco Use Types Packs/Day Years Used Date Smoking Tobacco: Never Assessed Comments No Sex and Gender Information Value Date Recorded Sex Assigned at Not on file Legal Sex Female 1:33 PM CDT Gender Identity Not on file Sexual Orientation [...] SCREENING 1975 LIPID TESTING 1975 MAMMOGRAM 1976 HIV SCREENING 1991 HEPATITIS C SCREENING 07/10/1994 DTAP/TDAP/TD VACCINES (1 - Tdap) 1995 HEPATITIS B VACCINE (1 of 3 - 19+ 3-dose series) 1995 COVID-19 VACCINE (1 - 2023-2 5 season) 2024 DEPRESSION SCREENING 10/01/2024 INFLUENZA VACCINE (Season Ended) 2025 ZOSTER VACCINE (1 of 2) 2026 HIB VACCINE Aged Out No longer eligi ble based on patient's age to complete this topic HPV VACCINE Aged Out No longer eligi ble based on patient's age to complete this topic MENINGOCOCCAL (Group B) VACC INE SHARED DECISION-MAKING Aged Out No longer eligibl e based on patient's age to complete this topic MENINGOCOCCAL GROUPS A/C/Y/W VACCINE Aged Out No longer eligible b ased on patient's age to complete this topic PNEUMOCOCCAL VACCINE Aged Out No long er eligible based on patient's age to complete [place] [address] [facility] Address: [facility] [address] [place] [id number] Care Teams Strings Teacher Relationship Specialty Start Date End Date Lawrence Don MD Internal Medicine 02/06/14
--- OUTSIDE RECORDS SUMMARY | 2025-01-20 16:09 | XMS_ITS | Referral Summary ---
Author Organization [facility] Address [address] [place] [address] Care Team Providers Care Mosaicist Name Role Phone Gustavo Mendosa MD Primary Care Provider Encounters Date Type Department Care Team Description 10/23/2024 10:15 AM GOVERNMENT TEACHER Office Visit [facility] Medical Group Cardiology at [address] [place] [address] John Austin MD H/O cardiomyopathy [...] on file Legal Sex Female 4:05 AM GOVERNMENT TEACHER Gender Identity Female 03/09/2020 7:23 PM CDT Sexual Orientation Not on file Last Filed Vital Signs Vital Sign Reading Time Taken Comments Blood Pressure 128/78 10/23/2024 10:02 AM GOVERNMENT TEACHER Pulse 87 10/23/2024 10:02 AM GOVERNMENT TEACHER Temperature 36 C (96.8 F) 10/19/2022 2:10 PM GOVERNMENT TEACHER Respiratory Rate 15 10/19/2022 2:30 PM GOVERNMENT TEACHER Oxygen Saturation 97% 10/23/2024 10:02 AM GOVERNMENT TEACHER Inhaled Oxygen Concentration - - Weight 79.8 kg (176 lb) 10/23/2024 10:02 AM GOVERNMENT TEACHER Height 167.6 cm (5' 6 ) 10/23/2024 10:02 AM GOVERNMENT TEACHER Body Mass Index 28.41 10/23/2024 10:02 AM GOVERNMENT TEACHER Plan of Treatment Not on file Procedures Procedure Name Priority Date/Time Associated Diagnosis Comments LIPID PANEL Routine 01/16/2024 11:37 AM CDT COLONOSCOPY 10/19/2022 1:03 PM GOVERNMENT TEACHER HEMOGLOBIN A1C Routine 08/13/2018 SERUM HEPATITIS C [...] EXTERNAL LAB * COLONOSCOPY (10/19/2022 1:03 PM GOVERNMENT TEACHER) Anatomical Region Laterality Modality Other Narrative Procedure Note Early, Lay Ventura MD - 10/19/2022 1:03 PM [facility] Patient Name: Elisha Guzmán Procedure Date: 10/19/2022 1:03 PM Date of : 1975 Admit Type: Outpatient Age: 47 Gender: Female Attending MD: Lay Salazar M.D. [facility] 9 Note Status: Finalized [...] The scope was passed under direct vision.The [id number] endoscope was introduced through the anus and advanced to the cecum, identified by appendiceal orifice and ileocecal valve. The colonoscopy was performed without difficulty. The patient tolerated the procedure well. The qualityof the bowel preparation was evaluated using the BBPS ([place] Bowel Preparation Scale) with scores of:Right Colon [...] On: 10/19/2022 1:03 PM Recognized by the [place] [employer] for Gastrointestinal Endoscopy for promoting quality [...] RNA Detection and Quantitation by Real-Time Reverse Computer Lab Aide-PCR (RT-PCR). Current interpretive data was last revised on 2016. Kala Silver MD LAB BLOOD ORDERABLES Final Re sult CDR HISTORICAL RESULTS from Last 3 Months or Most Recently Relevant to Health Maintenance Insurance [facility] HMO [facility] HMO/PPO Address: [address] [address] [place] [address] [facility] Address: [facility] [id number] [place] [address] [facility] HMO/PPO Address: [facility] [address] [place] [address] [facility] O [facility] HMO/PPO Address: [facility] [address] [place] [address] Advance Directives For more information, please contact: [phone] * Full Code (Latest Code Status on File) Date Activated Date Inactivated Comments 10/19/2022 1:30 PM 10/19/2022 6:57 PM Care Teams Mosaicist Relationship Specialty Start Date End Date Gustavo Mendosa MD [address] [facility] [address] [place] [address] PCP - General Family Medicine 05/09/19
== END 2025-01-20 14:05 | disposition home or self-care (01) ==
LOC: ANHLAB 14:05
PROVIDERS: PCP Family Medicine; Visit Provider Family Medicine
DX: Z00.00 Encounter for general adult medical examination without abnormal findings (principal); E78.5 Hyperlipidemia, unspecified; R53.83 Other fatigue
CPT/HCPCS: 36415; 80053; 80061; 81001; 84443; 85027